=== PATIENT | female | born 1950 | race African-American/Black ===

== ENCOUNTER 2016-08-20 05:47 | Inpatient (IN) ==
[2016-08-20] MEDS ORDERED: VANCOMYCIN INJ 1,000 MG in SODIUM CHLORIDE 0.9% 250 ML IV ONE (06:00)
[2016-08-20] MEDS ORDERED: CLINDAMYCIN INJ 900 MG in PREMIX 1 EACH IV ONE (06:00)
--- NOTE | 2016-08-20 06:59 | History and Physical Update ---
History and Physical Update - History and Physical H&P was reviewed, the patient examined and there: are no changes in the patients condition since last H&P was completed.
[2016-08-20] MEDS ORDERED: PROMETHAZINE 25 MG/1 ML VIAL IM PRN (07:06)
[2016-08-20] MEDS ORDERED: HYDROmorphone 2 MG/1 ML VIAL IV PRN (07:06)
[2016-08-20] MEDS ORDERED: TEMAZEPAM 7.5 MG CAPSULE PO PRN (07:06)
[2016-08-20] MEDS ORDERED: diphenhydrAMINE CAP 25 MG CAPSULE PO PRN (07:06)
[2016-08-20] MEDS ORDERED: BISACODYL 10 MG SUPP RECTAL PRN (07:06)
[2016-08-20] MEDS ORDERED: LACTULOSE 20 GM/30 ML UDCUP PO PRN (07:06)
[2016-08-20] MEDS ORDERED: VANCOMYCIN 1,000 MG VIAL ONE (08:29)
[2016-08-20] MEDS ORDERED: CLINDAMYCIN INJ 50 ML IV ONE (08:29)
[2016-08-20] MEDS ORDERED: DIAZEPAM 5 MG TABLET ONE (08:31)
[2016-08-20] MEDS ORDERED: DIAZEPAM 5 MG TABLET PO ONE (08:32)
[2016-08-20] MEDS ORDERED: LACTATED RINGERS 1,000 ML IV SCH (09:00)
[2016-08-20] MEDS ORDERED: ROPIVACAINE 0.5% 30 ML VIAL ONE (10:10)
[2016-08-20] MEDS ORDERED: TRANEXAMIC ACID 1,000 MG/10 ML VIAL IV ONE (10:17)
[2016-08-20] MEDS ORDERED: PHENYLEPHRINE 1 MG/10 ML SYRINGE IV ONE (10:19)
[2016-08-20] MEDS ORDERED: PROPOFOL 200 MG/20 ML VIAL IV ONE (10:19)
[2016-08-20] MEDS ORDERED: fentaNYL 100 MCG/2 ML VIAL ONE (12:21)
[2016-08-20] MEDS ORDERED: KETAMINE 500 MG/10 ML VIAL ONE (12:21)
[2016-08-20] MEDS ORDERED: MIDAZOLAM 2 MG/2 ML VIAL ONE (12:22)
[2016-08-20] MEDS ORDERED: HYDROmorphone PCA 30 MG/30 ML SYRINGE IV ONE (12:23)
[2016-08-20] MEDS ORDERED: ONDANSETRON 4 MG/2 ML VIAL ONE (12:28)
[2016-08-20] MEDS: HYDROmorphone PCA 30 MG/30 ML SYRINGE IV SCH (12:28)
[2016-08-20] MEDS: ONDANSETRON 4 MG/2 ML VIAL IV PRN ×3 (12:33→21:11)
--- NOTE | 2016-08-20 14:01 | XRay Report ---
XR knee 2V LT Indication: Left knee arthroplasty. Comparison: None. Technique: AP and lateral images of the left knee were submitted. Findings: Evidence of recent left knee arthroplasty is demonstrated. The knee prosthesis is well seated. Intra-articular drains are present. No acute fractures are demonstrated. Impression: 1. No radiographic evidence of significant pathology is demonstrated. 08/20/2016 1:56 PM PROCEDURE INTERPRETED AT [facility] DEPARTMENT OF RADIOLOGY Final Report Signed by: Dr. Leonard Penn
[2016-08-20] MEDS: LACTATED RINGERS 1,000 ML IV SCH (14:09)
[2016-08-20] MEDS: DOCUSATE SODIUM 100 MG CAPSULE PO SCH ×2 (14:10→21:03)
[2016-08-20] MEDS: DILTIAZEM CD 120 MG CAPSULE PO SCH ×2 (14:10→21:03)
[2016-08-20] MEDS: MULTIVITAMIN (CENTRUM) TABLET PO SCH (14:10)
[2016-08-20] MEDS: QUINAPRIL 20 MG TABLET PO SCH (14:10)
[2016-08-20] MEDS: ASPIRIN EC 81 MG TABLET PO SCH (14:10)
[2016-08-20] MEDS: BUDESONIDE/FORMOTEROL 160-4.5 INHALER 6 GM INH SCH ×2 (14:11→21:03)
[2016-08-20] MEDS: FUROSEMIDE 40 MG TABLET PO SCH (14:11)
[2016-08-20] MEDS: CHOLECALCIFEROL 1,000 UNIT TABLET PO SCH (14:11)
[2016-08-20] MEDS: PANTOPRAZOLE 40 MG TABLET PO SCH (14:11)
[2016-08-20] MEDS: CLINDAMYCIN INJ 900 MG in PREMIX 1 EACH IV SCH ×2 (14:11→19:01)
[2016-08-20] MEDS: hydroCHLOROthiazide 12.5 MG CAPSULE PO SCH (14:11)
[2016-08-20] MEDS: POTASSIUM CHLORIDE 20 MEQ TABLET PO SCH (14:11)
--- NOTE | 2016-08-20 17:17 | Pulmonology Progress Note ---
Pulmonary - PN: Subj Interval history: Patient is a 65-year-old black lady that came in today and had a left knee replacement. She is overweight and she is a light smoker with mild COPD. She did well with anesthesia but she is having some nausea now. She apparently is having a lot of pain also. She is not having any trouble with her breathing. She is getting some antiemetics now Exam (Progress Note) - Constitutional Vitals: Period Temp Pulse Resp BP Sys/Pugh Pulse Ox Last 24 Hr 97.2 F-99 F 62-76 16-21 95-140/50-81 92-100 General appearance: mild distress, over weight - Head Head exam: Present: normal inspection, normocephalic - Eye Eye exam: Present: EOMI. Absent: scleral icterus Pupils: Present: PATI - ENT ENT exam: Present: normal exam - Neck Neck exam: Present: normal inspection. Absent: lymphadenopathy, thyromegaly - Respiratory Respiratory exam: Present: clear to auscultation bilaterally. Absent: wheezes - Cardiovascular Cardiovascular exam: Present: regular rate and rhythm. Absent: gallop, systolic murmur - GI/Abdominal GI/Abdominal exam: Present: hypoactive bowel sounds, soft. Absent: distended, organomegaly, tenderness - Extremities Exam Extremities exam: Present: other (Left leg is wrapped). Absent: calf tenderness , edema - Neurological Exam Neurological exam: Present: alert, oriented X3, CN II-XII intact - Psychiatric Psychiatric exam: Present: normal affect, normal mood - Skin Skin exam: Present: warm, dry Assessment and Plan (1) Status post left knee replacement Status: Acute Assessment and plan: Patient came in and had a left knee replacement today. She did well with anesthesia but she is having a lot of nausea. Current Visit: Yes (2) COPD (chronic obstructive pulmonary disease) Status: Acute Assessment and plan: Patient is a smoker and has mild COPD. She is breathing comfortably now. Current Visit: No (3) DJD (degenerative joint disease) Status: Acute Assessment and plan: The patient has significant arthritis. She had previously had a right knee replacement Current Visit: No (4) Hypertension Status: Acute Assessment and plan: Her blood pressure and heart rate have been stable so far. Current Visit: No
--- NOTE | 2016-08-20 18:03 | Orthopedic Progress Note ---
Orthopedics - Subjective Interval history: pain ok nvi discussed up in am Exam - Constitutional Vitals: Period Temp Pulse Resp BP Sys/Pugh Pulse Ox Last 24 Hr 97.2 F-99 F 62-76 16-21 95-140/50-81 92-100
--- NOTE | 2016-08-20 19:54 | Anesthesia Post-Op ---
Anesthesia Post OP - Post Ansesthetic Evaluation Patient seen in post op: Yes Resp: within normal limits CV: within normal limits Mental: within normal limits Temp: within normal limits [id number]: within normal limits Nausea and Vomiting: within normal limits Pain: within normal limits
[2016-08-20] MEDS: PRAVASTATIN 20 MG TABLET PO SCH (21:03)
--- NOTE | 2016-08-20 23:14 | Operative Note ---
DATE: 08/20/2016 PREOPERATIVE DIAGNOSIS: OSTEOARTHRITIS, LEFT KNEE. POSTOPERATIVE DIAGNOSIS: SAME. OPERATIVE PROCEDURE: LEFT TOTAL KNEE (ATTUNE). SURGEON: Tejas Reid Jr., MD FARM TRUCK DRIVER: Attila ANESTHESIA: Spinal. INDICATIONS: A 65-year-old black female with severe tricompartmental osteoarthritis to her left kne e. She has maximized conservative treatment through the years and presenting today for elective lef t total knee. OPERATIVE PROCEDURE: The patient was taken to the operating room and under spinal anesthetic positi oned in the supine position. The left lower extremity was positioned, prepped, and draped in the [facility] sterile manner. She received preoperative antibiotic. The limb was elevated, exsanguinated, an d the tourniquet inflated to 300 mmHg. A midline incision was made over the anterior aspect of the left knee. Sharp dissection was carried down through the skin and subcutaneous tissue. A median pa rapatellar arthrotomy performed of the knee revealing extensive tricompartmental degenerative change s. Intramedullary alignment guides were used to make appropriate cuts about the distal femur and pr oximal tibia. The femur was sized to a 6, the tibia to a 5, and a 7-mm spacer selected. The patell a was resurfaced with a 35-button. After removal of the trial components, all three components were cemented into place. After the cement hardened, the wound was closed in a standard fashion using # 1 Vicryl for the arthrotomy and 2-0 Vicryl for the subcutaneous layer, and reginaldo for skin. Tourniquet time was approximately 50 minutes. DRAINS: x2. COUNTS: Correct.
[2016-08-21] MEDS: ONDANSETRON 4 MG/2 ML VIAL IV PRN ×2 (02:21→11:48)
[2016-08-21 05:12] LABS: Basophils % 0.1 % (0.0-0.8); Hematocrit 32.6 VOL% (35.7-47.0); Immature Granulocytes % 0.6 %; Immature Granulocytes Absolute 0.08 #; Lymphocytes # 0.7 10*3/uL (1.4-4.0); Lymphocytes % 5.4 % (21.3-54.2); Mean Corpuscular HGB Conc 30.7 GM/DL (32-36); Mean Corpuscular Hemoglobin 26 PG (27-34); Mean Corpuscular Volume 85.6 FL (87-102); Monocytes # 0.8 10*3/uL (0.11-0.8); Monocytes % 6.2 % (1.7-12.7); Neutrophils # 11.5 10*3/uL (1.4-7.4); Neutrophils % 87.7 % (38.7-73.9); Platelet Count 207 T/CUMM (130-400); Red Blood Count 3.81 MC/CUMM (3.8-5.5); Red Cell Distribution Width 17.3 % (9.3-17.3); White Blood Count 13.1 T/CUMM (4-12)
[2016-08-21] MEDS: FONDAPARINUX 2.5 MG/0.5 ML SYRINGE SUBCUT SCH (05:26)
[2016-08-21 05:55] LABS: Osmolality,Calculated 280.5 MOS/KG (273-304); Potassium 3.5 MMOL/L (3.5-5.1)
[2016-08-21 06:05] LABS: Band Neutrophils 2 % (0-10); Lymphocytes 9 % (20-55); Segmented Neutrophils 82 % (50-85); Total Cells Counted 100
[2016-08-21 06:06] LABS: Hypochromasia 1+; Ovalocytes Slight; Platelet Estimate Normal
[2016-08-21] MEDS ORDERED: MEPERIDINE 50 MG/1 ML VIAL IM PRN (07:39)
[2016-08-21] MEDS ORDERED: PROMETHAZINE 25 MG/1 ML VIAL IM PRN (07:41)
--- NOTE | 2016-08-21 07:42 | Orthopedic Progress Note ---
Orthopedics - Subjective Interval history: Still complaining of nausea. 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 Drain is removed will start PT social group worker for discharge planning to rehab Exam - Constitutional Vitals: Period Temp Pulse Resp BP Sys/Pugh Pulse Ox Last 24 Hr 97.2 F-98.3 F 62-87 16-21 95-154/50-81 92-100 Results - Labs CBC & BMP: 08/21/16 04:13 08/21/16 04:13
[2016-08-21] MEDS: QUINAPRIL 20 MG TABLET PO SCH (09:33)
[2016-08-21] MEDS: ASPIRIN EC 81 MG TABLET PO SCH (09:33)
[2016-08-21] MEDS: DILTIAZEM CD 120 MG CAPSULE PO SCH ×2 (09:34→20:36)
[2016-08-21] MEDS: MULTIVITAMIN (CENTRUM) TABLET PO SCH (09:34)
[2016-08-21] MEDS: PANTOPRAZOLE 40 MG TABLET PO SCH (09:34)
[2016-08-21] MEDS: hydroCHLOROthiazide 12.5 MG CAPSULE PO SCH (09:34)
[2016-08-21] MEDS: BUDESONIDE/FORMOTEROL 160-4.5 INHALER 6 GM INH SCH ×2 (09:34→22:23)
[2016-08-21] MEDS: DOCUSATE SODIUM 100 MG CAPSULE PO SCH ×2 (09:34→20:36)
[2016-08-21] MEDS: CHOLECALCIFEROL 1,000 UNIT TABLET PO SCH (09:34)
[2016-08-21] MEDS: POTASSIUM CHLORIDE 20 MEQ TABLET PO SCH (09:34)
[2016-08-21] MEDS: FUROSEMIDE 40 MG TABLET PO SCH (09:34)
[2016-08-21] MEDS: LACTATED RINGERS 1,000 ML IV SCH (11:10)
[2016-08-21] MEDS: HYDROmorphone PCA 30 MG/30 ML SYRINGE IV SCH (11:10)
--- NOTE | 2016-08-21 13:10 | Pulmonology Progress Note ---
Pulmonary - PN: Subj Interval history: Patient is a 65-year-old black lady that came in and had a left knee replacement. She is overweight and she is a light smoker with mild COPD. She has a lot of pain and nausea yesterday but she is feeling better today. She says she has been able to eat a little bit and is not as nauseated. She still has a good bit of discomfort but feels like she can do some physical therapy today. She is not having any shortness of breath at all. Exam (Progress Note) - Constitutional Vitals: Period Temp Pulse Resp BP Sys/Pugh Pulse Ox Last 24 Hr 96.2 F-98.2 F 65-101 17-20 114-154/65-81 91-99 Exam: General appearance: no distress, over weight, she looks like she feels better today. - Head Head exam: Present: normal inspection, normocephalic - Eye Eye exam: Present: EOMI. Absent: scleral icterus Pupils: Present: PATI - ENT ENT exam: Present: normal exam - Neck Neck exam: Present: normal inspection. Absent: lymphadenopathy, thyromegaly - Respiratory Respiratory exam: Present: clear to auscultation bilaterally. Absent: wheezes - Cardiovascular Cardiovascular exam: Present: regular rate and rhythm. Absent: gallop, systolic murmur - GI/Abdominal GI/Abdominal exam: Present: hypoactive bowel sounds, soft. Absent: distended, organomegaly, tenderness - Extremities Exam Extremities exam: Present: other (Left leg is wrapped). Absent: calf tenderness , edema - Neurological Exam Neurological exam: Present: alert, oriented X3, CN II-XII intact - Psychiatric Psychiatric exam: Present: normal affect, normal mood - Skin Skin exam: Present: warm, dry Results - Labs CBC & BMP: 08/21/16 04:13 08/21/16 04:13 Assessment and Plan (1) Status post left knee replacement Status: Acute Assessment and plan: Patient came in and had a left knee replacement. She is feeling better today although she is very sore. She will start physical therapy today. Current Visit: Yes (2) COPD (chronic obstructive pulmonary disease) Status: Acute Assessment and plan: Patient is a smoker and has mild COPD. She is breathing comfortably now. She is not having any wheezing. Current Visit: No (3) DJD (degenerative joint disease) Status: Acute Assessment and plan: The patient has significant arthritis. She had previously had a right knee replacement. She is doing well postop. Current Visit: No (4) Hypertension Status: Acute Assessment and plan: Her blood pressure and heart rate have been stable so far. Current Visit: No Specialty Discharge - Follow Up or Referrals Follow up with: Tejas Reid Jr., MD [Physician] - 1 Month
[2016-08-21] MEDS: MAGNESIUM HYDROXIDE SUSP 30 ML UDCUP PO PRN ×2 (14:25→20:36)
[2016-08-21] MEDS: PRAVASTATIN 20 MG TABLET PO SCH (20:36)
[2016-08-22 02:21] LABS: Basophils % 0.1 % (0.0-0.8); Hematocrit 32.7 VOL% (35.7-47.0); Hemoglobin 10.3 GM/DL (12.0-16.0); Immature Granulocytes % 0.4 %; Immature Granulocytes Absolute 0.06 #; Lymphocytes # 1.3 10*3/uL (1.4-4.0); Lymphocytes % 9.4 % (21.3-54.2); Mean Corpuscular HGB Conc 31.5 GM/DL (32-36); Mean Corpuscular Hemoglobin 27 PG (27-34); Mean Corpuscular Volume 84.7 FL (87-102); Mean Platelet Volume 10.7 FL (9.6-12.0); Monocytes # 1.2 10*3/uL (0.11-0.8); Monocytes % 8.7 % (1.7-12.7); Neutrophils # 11.5 10*3/uL (1.4-7.4); Neutrophils % 81.4 % (38.7-73.9); Platelet Count 260 T/CUMM (130-400); Red Blood Count 3.86 MC/CUMM (3.8-5.5); Red Cell Distribution Width 17.3 % (9.3-17.3); White Blood Count 14.2 T/CUMM (4-12)
[2016-08-22] MEDS: FONDAPARINUX 2.5 MG/0.5 ML SYRINGE SUBCUT SCH (06:11)
[2016-08-22] MEDS: MAGNESIUM HYDROXIDE SUSP 30 ML UDCUP PO PRN (06:11)
[2016-08-22] MEDS: CHOLECALCIFEROL 1,000 UNIT TABLET PO SCH (09:22)
[2016-08-22] MEDS: MULTIVITAMIN (CENTRUM) TABLET PO SCH (09:22)
[2016-08-22] MEDS: ASPIRIN EC 81 MG TABLET PO SCH (09:23)
[2016-08-22] MEDS: hydroCHLOROthiazide 12.5 MG CAPSULE PO SCH (09:23)
[2016-08-22] MEDS: QUINAPRIL 20 MG TABLET PO SCH (09:23)
[2016-08-22] MEDS: PANTOPRAZOLE 40 MG TABLET PO SCH (09:24)
[2016-08-22] MEDS: DOCUSATE SODIUM 100 MG CAPSULE PO SCH ×2 (09:24→20:34)
[2016-08-22] MEDS: DILTIAZEM CD 120 MG CAPSULE PO SCH ×2 (09:25→20:34)
[2016-08-22] MEDS: POTASSIUM CHLORIDE 20 MEQ TABLET PO SCH (09:27)
[2016-08-22] MEDS: FUROSEMIDE 40 MG TABLET PO SCH (09:27)
--- NOTE | 2016-08-22 09:57 | Pulmonology Progress Note ---
Pulmonary - PN: Subj Interval history: Patient is a 65-year-old black lady that came in and had a left knee replacement. She is overweight and she is a light smoker with mild COPD. She did fairly well yesterday and did more with physical therapy. She says her leg pain is much better. Her nausea has resolved and she is eating okay. She has not had a bowel movement yet. She is not having any breathing problems. Exam (Progress Note) - Constitutional Vitals: Period Temp Pulse Resp BP Sys/Pugh Pulse Ox Last 24 Hr 96.2 F-99.9 F 92-106 18-20 108-142/55-81 90-95 Exam: General appearance: no distress, over weight, she looks like she feels better today. - Head Head exam: Present: normal inspection, normocephalic - Eye Eye exam: Present: EOMI. Absent: scleral icterus Pupils: Present: PATI - ENT ENT exam: Present: normal exam - Neck Neck exam: Present: normal inspection. Absent: lymphadenopathy, thyromegaly - Respiratory Respiratory exam: Present: clear to auscultation bilaterally. Absent: wheezes - Cardiovascular Cardiovascular exam: Present: regular rate and rhythm. Absent: gallop, systolic murmur - GI/Abdominal GI/Abdominal exam: Present: hypoactive bowel sounds, soft. Absent: distended, organomegaly, tenderness - Extremities Exam Extremities exam: Present: other (Left leg is wrapped. She is not having any increased swelling or tenderness.). - Neurological Exam Neurological exam: Present: alert, oriented X3, CN II-XII intact - Psychiatric Psychiatric exam: Present: normal affect, normal mood - Skin Skin exam: Present: warm, dry Results - Labs CBC & BMP: 08/22/16 01:57 08/21/16 04:13 Assessment and Plan (1) Status post left knee replacement Status: Acute Assessment and plan: Patient came in and had a left knee replacement. Her leg is better and she is doing more physical therapy. Overall she looks quite stable. Current Visit: Yes (2) COPD (chronic obstructive pulmonary disease) Status: Acute Assessment and plan: Patient is a smoker and has mild COPD. She is breathing comfortably now. She is not having any wheezing. Current Visit: No (3) DJD (degenerative joint disease) Status: Acute Assessment and plan: The patient has significant arthritis. She had previously had a right knee replacement. She is doing well postop. Current Visit: No (4) Hypertension Status: Acute Assessment and plan: Her blood pressure and heart rate have been stable so far. She looks like she is doing better today. Current Visit: No Specialty Discharge - Follow Up or Referrals Follow up with: Tejas Reid Jr., MD [Physician] - 09/22/16 8:15 am
--- NOTE | 2016-08-22 10:21 | Orthopedic Progress Note ---
Orthopedics - Subjective Interval history: Comfortable. Nausea resolved tolerating PT. Likely to swing bed Thursday H&H stable Exam - Constitutional Vitals: Period Temp Pulse Resp BP Sys/Pugh Pulse Ox Last 24 Hr 96.2 F-99.9 F 92-106 18-20 108-142/55-81 90-95 Results - Labs CBC & BMP: 08/22/16 01:57 08/21/16 04:13 Specialty Discharge - Follow Up or Referrals Follow up with: Tejas Reid Jr., MD [Physician] - 09/22/16 8:15 am
[2016-08-22] MEDS: BUDESONIDE/FORMOTEROL 160-4.5 INHALER 6 GM INH SCH ×2 (11:04→20:52)
[2016-08-22] MEDS: PRAVASTATIN 20 MG TABLET PO SCH (20:34)
[2016-08-23] MEDS: FONDAPARINUX 2.5 MG/0.5 ML SYRINGE SUBCUT SCH (05:08)
[2016-08-23] MEDS: QUINAPRIL 20 MG TABLET PO SCH (08:02)
[2016-08-23] MEDS: CHOLECALCIFEROL 1,000 UNIT TABLET PO SCH (08:02)
[2016-08-23] MEDS: MULTIVITAMIN (CENTRUM) TABLET PO SCH (08:03)
[2016-08-23] MEDS: hydroCHLOROthiazide 12.5 MG CAPSULE PO SCH (08:03)
[2016-08-23] MEDS: ASPIRIN EC 81 MG TABLET PO SCH (08:03)
[2016-08-23] MEDS: PANTOPRAZOLE 40 MG TABLET PO SCH (08:03)
[2016-08-23] MEDS: FUROSEMIDE 40 MG TABLET PO SCH (08:03)
[2016-08-23] MEDS: DOCUSATE SODIUM 100 MG CAPSULE PO SCH ×2 (08:03→20:26)
[2016-08-23] MEDS: POTASSIUM CHLORIDE 20 MEQ TABLET PO SCH (08:03)
[2016-08-23] MEDS: DILTIAZEM CD 120 MG CAPSULE PO SCH ×2 (08:04→20:26)
[2016-08-23] MEDS: BUDESONIDE/FORMOTEROL 160-4.5 INHALER 6 GM INH SCH ×2 (08:08→20:28)
--- NOTE | 2016-08-23 08:37 | Orthopedic Progress Note ---
Orthopedics - Subjective Interval history: On walker in [place]. Doing well pain improving also nausea improved continue rehab to rehab Thursday Exam - Constitutional Vitals: Period Temp Pulse Resp BP Sys/Pugh Pulse Ox Last 24 Hr 98.8 F-99.9 F 94-105 18-20 111-142/53-71 91-95 Results - Labs CBC & BMP: 08/22/16 01:57 08/21/16 04:13 Specialty Discharge - Follow Up or Referrals Follow up with: Tejas Reid Jr., MD [Physician] - 09/22/16 8:15 am
[2016-08-23] MEDS: PRAVASTATIN 20 MG TABLET PO SCH (20:26)
[2016-08-24] MEDS: FONDAPARINUX 2.5 MG/0.5 ML SYRINGE SUBCUT SCH (05:13)
[2016-08-24] MEDS: BUDESONIDE/FORMOTEROL 160-4.5 INHALER 6 GM INH SCH ×2 (09:24→20:43)
[2016-08-24] MEDS: DILTIAZEM CD 120 MG CAPSULE PO SCH ×2 (09:25→20:43)
[2016-08-24] MEDS: hydroCHLOROthiazide 12.5 MG CAPSULE PO SCH (09:25)
[2016-08-24] MEDS: ASPIRIN EC 81 MG TABLET PO SCH (09:25)
[2016-08-24] MEDS: MULTIVITAMIN (CENTRUM) TABLET PO SCH (09:25)
[2016-08-24] MEDS: PANTOPRAZOLE 40 MG TABLET PO SCH (09:25)
[2016-08-24] MEDS: DOCUSATE SODIUM 100 MG CAPSULE PO SCH ×2 (09:25→20:43)
[2016-08-24] MEDS: QUINAPRIL 20 MG TABLET PO SCH (09:25)
[2016-08-24] MEDS: CHOLECALCIFEROL 1,000 UNIT TABLET PO SCH (09:25)
[2016-08-24] MEDS: FUROSEMIDE 40 MG TABLET PO SCH (09:25)
[2016-08-24] MEDS: POTASSIUM CHLORIDE 20 MEQ TABLET PO SCH (09:25)
--- NOTE | 2016-08-24 10:27 | Orthopedic Progress Note ---
Orthopedics - Subjective Interval history: Doing well pain much improved dressing dry continue PT to rehab soon Exam - Constitutional Vitals: Period Temp Pulse Resp BP Sys/Pugh Pulse Ox Last 24 Hr 96.9 F-99.6 F 81-95 18-20 108-137/55-74 92-100 Results - Labs CBC & BMP: 08/22/16 01:57 08/21/16 04:13 Specialty Discharge - Follow Up or Referrals Follow up with: Tejas Reid Jr., MD [Physician] - 09/22/16 8:15 am
[2016-08-24] MEDS: MAGNESIUM HYDROXIDE SUSP 30 ML UDCUP PO PRN (15:34)
[2016-08-24] MEDS: PRAVASTATIN 20 MG TABLET PO SCH (20:43)
[2016-08-25] MEDS: FONDAPARINUX 2.5 MG/0.5 ML SYRINGE SUBCUT SCH (05:46)
[2016-08-25] MEDS: QUINAPRIL 20 MG TABLET PO SCH (08:50)
[2016-08-25] MEDS: FUROSEMIDE 40 MG TABLET PO SCH (08:50)
[2016-08-25] MEDS: hydroCHLOROthiazide 12.5 MG CAPSULE PO SCH (08:50)
[2016-08-25] MEDS: POTASSIUM CHLORIDE 20 MEQ TABLET PO SCH (08:50)
[2016-08-25] MEDS: DOCUSATE SODIUM 100 MG CAPSULE PO SCH (08:50)
[2016-08-25] MEDS: MULTIVITAMIN (CENTRUM) TABLET PO SCH (08:50)
[2016-08-25] MEDS: BUDESONIDE/FORMOTEROL 160-4.5 INHALER 6 GM INH SCH (08:50)
[2016-08-25] MEDS: DILTIAZEM CD 120 MG CAPSULE PO SCH (08:50)
[2016-08-25] MEDS: ASPIRIN EC 81 MG TABLET PO SCH (08:50)
[2016-08-25] MEDS: PANTOPRAZOLE 40 MG TABLET PO SCH (08:50)
[2016-08-25] MEDS: CHOLECALCIFEROL 1,000 UNIT TABLET PO SCH (08:51)
--- NOTE | 2016-08-25 10:47 | Orthopedic Progress Note ---
Orthopedics - Subjective Interval history: Doing well no problems ready for rehab Exam - Constitutional Vitals: Period Temp Pulse Resp BP Sys/Pugh Pulse Ox Last 24 Hr 98.2 F-99.2 F 90-95 17- 114-135/64-90 90-99 Results - Labs CBC & BMP: 08/22/16 01:57 08/21/16 04:13 Specialty Discharge - Follow Up or Referrals Follow up with: Tejas Reid Jr., MD [Physician] - 09/22/16 8:15 am
--- NOTE | 2016-08-25 10:49 | Discharge Summary ---
Hospital Course - Hospital Course Hospital Course: Uncomplicated postop course total knee replacement discharged to rehab Diagnosis - Discharge Diagnosis (1) Osteoarthritis of left knee Status: Acute Specialty Discharge - Follow Up or Referrals Follow up with: Tejas Reid Jr., MD [Physician] - 09/22/16 8:15 am Discharge Plan - Discharge Data Disposition: Swing Bed, Hos Based, [place] Condition at Discharge: Stable Discharge Diet: advance to your usual diet Activity: ambulate only with your walker, as per physical therapy, increase activity as tolerated Hygiene: may shower, keep area(s) dry Weight Bearing at Discharge: weight bear as tolerated Driving: not until seen by doctor - Discharge Medications New HYDROcodone/ACETAMIN 7.5-325 [[place] 7.5-325] 1 tablet PO Q4H PRN #30 tablet PRN Reason: Pain Moderate (4-7) Fondaparinux [Arixtra] 2.5 mg SUBCUT Q24H syringe Continue dilTIAZem HCl [Diltiazem ER (24 hr)] 120 mg PO BID Furosemide Tab [Lasix Tab] 20 mg PO DAILY Omeprazole Magnesium [Prilosec Otc] 20 mg PO DAILY Hydralazine HCl 25 mg PO BID Quinapril/Hydrochlorothiazide [Quinapril-Hctz 20-12.5 mg Tab] 2 each PO DAILY Cholecalciferol (Vitamin D3) [Vitamin D3] 1,000 unit PO DAILY Pravastatin Sodium 20 mg PO BEDTIME Budesonide/Formoterol 160-4.5 [Symbicort 160-4.5] 2 puff INH BID Aspirin [Ecotrin] 81 mg PO DAILY Multivitamin [One Daily] 1 each PO DAILY Potassium Chloride Cap/Tab [K Dur] 20 meq PO DAILY - Follow Up or Referral Follow Up: Tejas Reid Jr., MD [Physician] - 09/22/16 8:15 am - Forms/Instructions Instructions: Total Knee Replacement (DC) Additional Discharge Instructions: Discharged to rehab continue home medications Arixtra for 10 more days then aspirin only [place] for pain weightbearing as tolerated total knee rehab reginaldo to be removed and wound Steri-Stripped September 03. Follow-up 4 weeks Exam - Constitutional Vitals: Period Temp Pulse Resp BP Sys/Puhg Pulse Ox Last 24 Hr 98.2 F-99.2 F 90-95 17-20 114-135/64-90 90-99 DS: Provider Date of admission: 08/20/16 05:47 Primary care physician: João Hernandez MD Attending physician on admission: Tejas Reid Jr., MD Consults: 08/20/16 07:06 Consult to Case Mgmt/Social Srvs [CONS] Routine Reason for Case Mgmt/Social Srvs: Rehab Home Health Equipment Consult Comment: Bedside Commode, CPM, Walker Consult to Occupational Therapy [CONS] Routine Reason for Occupational Therapy: Evaluate and Treat Consult Comment: ADL's Consult to Physical Therapy [CONS] Routine Reason for Physical Therapy: Evaluate and Treat Gait Training 08/20/16 07:08 Consult to Physician [CONS] Routine Comment: Consulting Provider: Rad Briseno Consulting Provider Notified: Yes When should Consulting Provider be notified: Now Person Notified: cherie douglass Date Notified: 08/20/16 Time Notified: 13:20 08/20/16 13:49 Consult to Pharmacy [CONS] Routine Reason for Pharmacy Consult: Adjust Meds Renal Funct Discharging clinician: Tejas Reid Jr., MD
[2016-08-25 11:28] VITALS: BP 145/79
--- NOTE | 2016-08-25 12:07 | Pulmonology Progress Note ---
Pulmonary - PN: Subj Interval history: Patient is a 65-year-old black lady that came in and had a left knee replacement. She is overweight and she is a light smoker with mild COPD. She has done better with physical therapy. She feels like her leg pain is better and she is moving around more. She is not short of breath and not coughing that badly. She finally had a bowel movement and says she is eating better. Overall she is stable and going to a swing bed. Exam (Progress Note) - Constitutional Vitals: Period Temp Pulse Resp BP Sys/Pugh Pulse Ox Last 24 Hr 98.2 F-99.2 F 92-101 16-20 123-145/65-90 93-99 Exam: General appearance: no distress, over weight, she looks quite comfortable today. - Head Head exam: Present: normal inspection, normocephalic - Eye Eye exam: Present: EOMI. Absent: scleral icterus Pupils: Present: PATI - ENT ENT exam: Present: normal exam - Neck Neck exam: Present: normal inspection. Absent: lymphadenopathy, thyromegaly - Respiratory Respiratory exam: Present: clear to auscultation bilaterally. I do not hear any rales or wheezing at present. - Cardiovascular Cardiovascular exam: Present: regular rate and rhythm. Absent: gallop, systolic murmur - GI/Abdominal GI/Abdominal exam: Present: hypoactive bowel sounds, soft. Absent: distended, organomegaly, tenderness - Extremities Exam Extremities exam: Present: other (Left leg is wrapped. She is not having any increased swelling or tenderness. She is moving her leg better.). - Neurological Exam Neurological exam: Present: alert, oriented X3, CN II-XII intact - Psychiatric Psychiatric exam: Present: normal affect, normal mood - Skin Skin exam: Present: warm, dry Results - Labs CBC & BMP: 08/22/16 01:57 08/21/16 04:13 Assessment and Plan (1) Status post left knee replacement Status: Acute Assessment and plan: Patient came in and had a left knee replacement. Her leg is better and she is doing more physical therapy. She is feeling better and is going to a swing bed today. Current Visit: Yes (2) COPD (chronic obstructive pulmonary disease) Status: Acute Assessment and plan: Patient is a smoker and has mild COPD. She is breathing comfortably now. She is not having any wheezing. Her O2 saturations occasionally dipped but she looks okay. She should do well with increased activity Current Visit: No (3) DJD (degenerative joint disease) Status: Acute Assessment and plan: The patient has significant arthritis. She had previously had a right knee replacement. She is doing well postop. Current Visit: No (4) Hypertension Status: Acute Assessment and plan: Her blood pressure and heart rate have been stable so far. She appears to be medically stable at present. Current Visit: No Specialty Discharge - Follow Up or Referrals Follow up with: Tejas Reid Jr., MD [Physician] - 09/22/16 8:15 am Rad Briseno MD [Physician] - (PLEASE CALL AND SCHEDULE FOLLOW UP APPOINTMENT AFTER DISCHARGE FROM [facility].)
== END 2016-08-25 14:20 | disposition swing bed (61) | DRG 470 ==
LOC: N.SDSINP 05:47 → N.3E 13:02
PROVIDERS: ADMIT Orthopaedic Surgery; ATTEND Orthopaedic Surgery